=== PATIENT | female | born 1970 | race Caucasian/White ===

== ENCOUNTER 2023-05-08 07:57 | Outpatient (CLI) | payer OTHER, SELFPAY | END 2023-05-08 07:58 | disposition home or self-care (01) | PROVIDERS: PCP Family Medicine; Visit Provider Family Medicine | DX: I48.91 Unspecified atrial fibrillation (principal) | CPT/HCPCS: 93246 ==

== ENCOUNTER 2023-06-01 08:11 | Outpatient (CLI) | payer OTHER, SELFPAY ==
--- NOTE | 2023-06-01 09:07 | W.CARDEVENT ---
Date of service: 06/01/23 Time of Service: 09:07 Cardiac Event Recorder Referring Provider:: Keyur Jordan Indications:: Atrial fibrillation Cardiac Event Note: This is a cardiac event monitor. Patient was monitored for 12 days and 19 hours Rhythm throughout was sinus with an average heart rate of 79. Minimum was 41, maximum 144 There were rare ventricular ectopic beats. There was 1 ventricular triplet There were rare atrial premature beats A total of 11 self-limited atrial runs occurred. The longest of these was 13 beats in duration There was no atrial fibrillation, no high-grade AV block, no pauses greater than 3 seconds Patient symptoms did not correspond to any dysrhythmia
== END 2023-06-01 08:12 | disposition home or self-care (01) ==
LOC: CARDOPNVT 08:11
PROVIDERS: PCP Family Medicine; Visit Provider Internal Medicine Cardiovascular Disease
DX: I48.91 Unspecified atrial fibrillation (principal); I49.1 Atrial premature depolarization

== ENCOUNTER 2024-10-26 15:02 | Outpatient (CLI) | payer OTHER, SELFPAY ==
[2024-10-26 14:21] LABS: Hemoglobin A1C 6.1 % (<5.7)
[2024-10-26 14:59] LABS: ALT 117 U/L (14-59); AST 57 U/L (15-37); Albumin 4.1 g/dL (3.4-5.0); Alkaline Phosphatase 68 U/L (46-116); Anion Gap 10.3 mmol/L (3-11); BUN 14 mg/dL (7-18); Bilirubin, Total 0.8 mg/dL (0.2-1.0); CO2 24.7 mmol/L (21.0-32.0); Calcium 9.4 mg/dL (8.5-10.1); Calculated LDL 134 mg/dL (<100); Chloride 105 mmol/L (98-107); Cholesterol 208 mg/dL (<200); Estimated GFR 102.07 (mL/min/1.73m2); Glucose 101 mg/dL (74-106); HDL Cholesterol 51 mg/dL (>or=50); Potassium 4.1 mmol/L (3.5-5.1); Sodium 140 mmol/L (136-145); Total Protein 8.2 g/dL (6.4-8.2); Triglyceride 119 mg/dL (<150)
== END 2024-10-26 15:03 | disposition home or self-care (01) ==
LOC: LBO 15:02
PROVIDERS: PCP Family Medicine; Visit Provider Nurse Practitioner Family
DX: F41.9 Anxiety disorder, unspecified (principal); R63.5 Abnormal weight gain
CPT/HCPCS: 36415; 80053; 80061; 83036